=== PATIENT | male | born 1985 | race Asian ===

== ENCOUNTER 2023-05-26 17:26 | Emergency (ER) | payer OTHER ==
[~2023-05-26] VITALS: Ht 182.9 cm; Wt 108.9 kg
[2023-05-26 17:30] VITALS: BP_SYST 120; PULSE 83; RESP 18; TEMP 97.5; O2SAT 100
[2023-05-26 19:38] LABS: COVID19 ANTIGEN SOFIA FIA NEGATIVE (NEGATIVE)
[2023-05-26 19:40] LABS: INFLUENZA TYPE B NEGATIVE (NEGATIVE)
[2023-05-26 19:49] LABS: INFLUENZA TYPE A POSITIVE (NEGATIVE)
[2023-05-26] MEDS ORDERED: OSEL75CA PO (19:51)
[2023-05-26] MEDS ORDERED: PHEDM120 PO (19:51)
[2023-05-26] MEDS ORDERED: NAPR-690 PO (19:51)
[2023-05-26 19:58] VITALS: BP_SYST 128; PULSE 74; RESP 16; TEMP 98.2; O2SAT 98
== END 2023-05-26 19:58 | disposition home or self-care (01) ==
LOC: SED 17:26
DX: J10.1 Influenza due to other identified influenza virus with other respiratory manifestations (principal); R05.9 Cough, unspecified; R09.89 Other specified symptoms and signs involving the circulatory and respiratory systems; Z79.899 Other long term (current) drug therapy; Z20.822 Contact with and (suspected) exposure to COVID-19
CPT/HCPCS: 36415; 71045; 99284